=== PATIENT | female | born 1980 | race African-American/Black ===

== ENCOUNTER 2020-08-25 06:47 | Emergency (ER) | payer BC ==
[~2020-08-25] VITALS: Ht 160 cm; Wt 102.5 kg
== END 2020-08-25 10:26 | disposition home or self-care (01) ==
LOC: ER 06:47
DX: S53.491A Other sprain of right elbow, initial encounter (principal); M79.621 Pain in right upper arm; W05.1XXA Fall from non-moving nonmotorized scooter, initial encounter; Y93.02 Activity, running; Y92.488 Other paved roadways as the place of occurrence of the external cause; Y99.8 Other external cause status